=== PATIENT | female | born 1985 | race Caucasian/White ===

== ENCOUNTER 2021-08-25 20:31 | Emergency (ER) | payer MEDICAID ==
[~2021-08-25] VITALS: Ht 160 cm; Wt 113.4 kg
[2021-08-25 20:39] VITALS: BP 161/98
--- NOTE | 2021-08-25 20:52 | NUR ---
seen by ermd for examination
[2021-08-25] MEDS ORDERED: lisinopriL 20 MG TAB PO ONE (20:55)
--- NOTE | 2021-08-25 20:56 | NUR ---
patient awaiting in chd
[2021-08-25 21:19] LABS: BASOPHILS % (AUTO) 0.4 % (0.0-2.0); EOSINOPHILS # (AUTO) 0.1 K/uL (0-0.4); EOSINOPHILS % (AUTO) 1.8 % (0.0-4.0); HEMATOCRIT 38.9 % (36-48); LYMPHOCYTES # (AUTO) 2.4 K/uL (2.5-16.5); LYMPHOCYTES % (AUTO) 30.9 % (20.5-51.1); MEAN CORPUSCULAR HEMOGLOBIN 27 pg (27-31); MEAN CORPUSCULAR HGB CONC 34 g/dL (33-37); MEAN CORPUSCULAR VOLUME 81.9 fL (80-94); MONOCYTES # (AUTO) 0.5 K/uL (0.8-1.0); MONOCYTES % (AUTO) 6.5 % (1.7-9.3); NEUTROPHILS # (AUTO) 4.8 K/uL (1.8-7.7); NEUTROPHILS % (AUTO) 60.4 % (42.2-75.2); PLATELET COUNT (AUTO) 290 K/uL (140-450); RED BLOOD CELL COUNT(AUTO) 4.75 MIL/uL (4.20-5.40); RED CELL DISTRIBUTION WIDTH 14.1 % (11.6-13.7); WHITE BLOOD COUNT (AUTO) 7.9 K/uL (4.8-10.8)
[2021-08-25 21:43] LABS: ALBUMIN 3.5 g/dL (3.4-5.0); ANION GAP 14.7 (8-16); CARBON DIOXIDE 27.2 mmol/L (21-32); CREATININE 0.7 mg/dL (0.6-1.3); POTASSIUM 3.9 mmol/L (3.5-5.1); TOTAL BILIRUBIN 0.1 mg/dL (0.0-1.0)
--- NOTE | 2021-08-25 21:57 | NUR ---
patient feeling thirsty with mouth dryness.
--- NOTE | 2021-08-25 22:03 | NUR ---
patient ambulated to the bathroom
[2021-08-25] MEDS ORDERED: LISI-487 PO (23:17)
[2021-08-25 23:23] VITALS: BP 145/89
--- NOTE | 2021-08-25 23:23 | NUR ---
Patient discharged with v/s stable. Written and verbal after care instructions given and explained BY DR. GARCÍA Patient alert, oriented and verbalized understanding of instructions. Ambulatory with steady gait. All questions addressed prior to discharge. ID band removed. Patient advised to follow up with PMD. Rx of ZESTRIL given. Patient educated on indication of medication including possible reaction and side effects. Opportunity to ask questions provided and answered.
== END 2021-08-25 23:23 | disposition home or self-care (01) ==
LOC: MED 20:31
DX: I10 Essential (primary) hypertension (principal); Z88.0 Allergy status to penicillin; Z91.040 Latex allergy status; Z88.1 Allergy status to other antibiotic agents
CPT/HCPCS: 36415; 80053; 82948; 84484; 85025; 93005; 99284

== ENCOUNTER 2022-11-11 21:08 | Emergency (ER) | payer BC, MEDICAID ==
[~2022-11-11] VITALS: Ht 157.5 cm; Wt 104.3 kg
[~2022-11-11 21:08] MED LIST: LISI-487 PO
[2022-11-11 21:11] VITALS: BP 132/85
[2022-11-11 21:15] VITALS: BP 132/85
--- NOTE | 2022-11-11 23:54 | NUR ---
NOTIFIED BY ADMITTING STAFF THAT PT NO LONGER WISHES TO BE EVALAUTED. PT LWBS
== END 2022-11-11 23:54 | disposition left against medical advice (07) ==
LOC: MED 21:08
DX: M79.89 Other specified soft tissue disorders (principal); Z53.21 Procedure and treatment not carried out due to patient leaving prior to being seen by health care provider
CPT/HCPCS: 93005; 99281